=== PATIENT | male | born 1980 | race Caucasian/White ===

== ENCOUNTER → 2019-12-17 | Emergency (ER) | payer OTHER ==
[~2019-12-17] VITALS: Ht 170.2 cm; Wt 90.7 kg
[~2019-12-17] MED LIST: AMOX-CLAV 875-1 EACH PO; MECLIZINE HCL25 MG PO
== END | disposition home or self-care (01) ==
LOC: ER 14:25
DX: R42 Dizziness and giddiness (principal)

== ENCOUNTER 2022-05-22 14:08 | Outpatient (CLI) | payer OTHER | END 2022-05-22 14:27 | disposition home or self-care (01) | LOC: TOM 14:08 | DX: R10.32 Left lower quadrant pain (principal); Z87.19 Personal history of other diseases of the digestive system ==